=== PATIENT | female | born 1985 | race Two or more races ===

== ENCOUNTER 2017-11-15 06:49 | Inpatient (IN) | payer MEDICAID ==
[~2017-11-15] VITALS: Ht 172.7 cm; Wt 87.2 kg
[~2017-11-15 06:49] MED LIST: SERT-135 PO
[2017-11-15 08:13] LABS: Eosinophils # (auto) 0 uL; Hemoglobin 13.3 g/dL (12.2-16.2); Lymphocytes # (auto) 0.9 uL; Monocytes # (auto) 0.4 uL; Platelet Count (auto) 140 10^3/uL (140-450); Red Cell Distribution Width 18.4 % (11.8-14.3)
[2017-11-15 08:15] LABS: Basophils # (auto) 0 uL; Basophils % (auto) 0.6 % (0.0-2.0); Hematocrit 38.9 % (36.0-46.0); Lymphocytes % (auto) 11.2 % (10.0-50.0); Mean Corpuscular Hgb Conc. 34.3 g/dL (32.0-36.0); Monocytes % (auto) 4.5 % (0.0-12.0); Neutrophils # (auto) 6.8 uL; Neutrophils % (auto) 83.7 % (37.0-80.0); Nucleated Red Blood Cells % 0.2 %; Red Blood Cells 3.92 10^6/uL (4.0-5.20); White Blood Cell 8.1 10^3/uL (4.4-10.8)
[2017-11-15 08:32] LABS: INR 1.22 (0.9-1.15); Partial Thromboplastin Time 24.3 sec (22.64-33.71); Prothrombin Time 13.3 sec (9.37-12.3)
[2017-11-15 08:35] LABS: Albumin 3.8 g/dL (3.4-5.0); BUN/Creatinine Ratio 8.1
[2017-11-15 08:37] LABS: Bilirubin, Total 2.4 mg/dL (0.2-1.0); Total Protein 9.1 g/dL (6.4-8.2)
[2017-11-15 11:16] LABS: Urine Bacteria NONE SEEN /hpf (None Seen); Urine Blood TRACE /uL (Negative); Urine Hyaline Cast MOD /lpf (0 - 2); Urine Mucus MANY (None Seen); Urine Specific Gravity 1.039 (1.001-1.035); Urine WBC 5 /hpf (0 - 5)
[2017-11-15] MEDS ORDERED: SODIUM CHLORIDE 0.9% 1,000 ML IV ONE ×2 (11:47)
[2017-11-15] MEDS ORDERED: PANTOPRAZOLE 40 MG/10 ML VIAL IV ONE (12:00)
[2017-11-15] MEDS ORDERED: NALBUPHINE HCL 10 MG/1ml INJECTION IV ONE ×2 (12:00→13:45)
[2017-11-15] MEDS ORDERED: PIPERACILLIN-TAZOB 3.375GM 50 ML IV ONE (12:00)
[2017-11-15] MEDS ORDERED: ONDANSETRON HCL 4 MG/2 ML VIAL IV ONE (12:00)
[2017-11-15] MEDS ORDERED: KETOROLAC TROMETH 30 MG/ML 1ML VIAL IV ONE (13:45)
[2017-11-15] MEDS ORDERED: ONDANSETRON HCL 4 MG/2 ML VIAL IV PRN (14:15)
[2017-11-15] MEDS ORDERED: POTASSIUM CHL 20 Meq TABLET PO ONE (14:15)
[2017-11-15] MEDS: SODIUM CHLORIDE 0.9% 1,000 ML IV SCH ×2 (14:23→22:58)
[2017-11-15] MEDS: MORPHINE SULFATE 4 MG/ML SYR/VIAL IV PRN ×2 (18:03→23:17)
[2017-11-15 23:37] VITALS: BP 137/84
[2017-11-16] VITALS (7 sets, daily range): BP systolic 120–154; BP diastolic 68–91
[2017-11-16] MEDS: MORPHINE SULFATE 4 MG/ML SYR/VIAL IV PRN ×3 (05:14→21:52)
[2017-11-16 05:43] LABS: Basophils # (auto) 0 uL; Basophils % (auto) 0.4 % (0.0-2.0); Eosinophils # (auto) 0 uL; Eosinophils % (auto) 0.3 % (0.0-7.0); Hematocrit 32.9 % (36.0-46.0); Hemoglobin 11.2 g/dL (12.2-16.2); Lymphocytes # (auto) 1.3 uL; Lymphocytes % (auto) 20.6 % (10.0-50.0); Mean Corpuscular Hemoglobin 34.7 pg (28.0-32.0); Mean Corpuscular Hgb Conc. 34.2 g/dL (32.0-36.0); Mean Corpuscular Volume 101.4 fL (80.0-100.0); Monocytes # (auto) 0.4 uL; Monocytes % (auto) 6.4 % (0.0-12.0); Neutrophils # (auto) 4.5 uL; Neutrophils % (auto) 72.3 % (37.0-80.0); Platelet Count (auto) 108 10^3/uL (140-450); Red Blood Cells 3.25 10^6/uL (4.0-5.20); Red Cell Distribution Width 18.3 % (11.8-14.3); White Blood Cell 6.2 10^3/uL (4.4-10.8)
[2017-11-16 06:10] LABS: Albumin 3.1 g/dL (3.4-5.0); BUN/Creatinine Ratio 9.6; Bilirubin, Total 1.8 mg/dL (0.2-1.0); Calcium 7.2 mg/dL (8.5-10.1); Potassium 3.3 mmol/L (3.5-5.1); Total Protein 7.5 g/dL (6.4-8.2)
[2017-11-16] MEDS: SODIUM CHLORIDE 0.9% 1,000 ML IV SCH ×3 (06:15→22:22)
[2017-11-16] MEDS: PANTOPRAZOLE 40 MG/10 ML VIAL IV SCH (09:25)
[2017-11-16] MEDS: HYDROcodone-ACET 5/325MG TAB PO PRN ×2 (09:26→20:24)
[2017-11-16] MEDS ORDERED: POTASSIUM CHL 20 Meq TABLET PO ONE (15:30)
[2017-11-17] MEDS: HYDROcodone-ACET 5/325MG TAB PO PRN ×2 (02:45→15:07)
[2017-11-17 05:00] VITALS: BP 142/83
[2017-11-17 06:31] LABS: Basophils # (auto) 0 uL; Basophils % (auto) 0.6 % (0.0-2.0); Eosinophils # (auto) 0.1 uL; Hematocrit 30.4 % (36.0-46.0); Hemoglobin 10.5 g/dL (12.2-16.2); Monocytes # (auto) 0.3 uL; Neutrophils # (auto) 3.4 uL; Nucleated Red Blood Cells % 0.1 %; White Blood Cell 5.3 10^3/uL (4.4-10.8)
[2017-11-17 06:34] LABS: Eosinophils % (auto) 1.4 % (0.0-7.0); Lymphocytes # (auto) 1.6 uL; Lymphocytes % (auto) 29.3 % (10.0-50.0); Mean Corpuscular Hemoglobin 35.5 pg (28.0-32.0); Mean Corpuscular Hgb Conc. 34.7 g/dL (32.0-36.0); Mean Corpuscular Volume 102.4 fL (80.0-100.0); Monocytes % (auto) 5.6 % (0.0-12.0); Neutrophils % (auto) 63.1 % (37.0-80.0); Platelet Count (auto) 132 10^3/uL (140-450); Red Blood Cells 2.97 10^6/uL (4.0-5.20); Red Cell Distribution Width 18.2 % (11.8-14.3)
[2017-11-17] MEDS: SODIUM CHLORIDE 0.9% 1,000 ML IV SCH ×3 (06:50→23:30)
[2017-11-17 07:02] LABS: Albumin 2.8 g/dL (3.4-5.0); BUN/Creatinine Ratio 5.5; Bilirubin, Total 0.7 mg/dL (0.2-1.0); Calcium 6.9 mg/dL (8.5-10.1); Magnesium 1.4 mg/dL (1.6-2.6); Potassium 3.4 mmol/L (3.5-5.1); Total Protein 7.1 g/dL (6.4-8.2)
[2017-11-17 09:37] VITALS: BP 148/94
[2017-11-17] MEDS: PANTOPRAZOLE 40 MG/10 ML VIAL IV SCH (09:42)
[2017-11-17] MEDS: MORPHINE SULFATE 4 MG/ML SYR/VIAL IV PRN ×2 (09:56→19:45)
[2017-11-17] MEDS ORDERED: MAGNESIUM SULFATE 1GM/100ML 100 ML IV ONE (10:00)
[2017-11-17] MEDS ORDERED: POTASSIUM CHL 20MEQ/100ML 100 ML IV ONE (10:00)
[2017-11-17 11:45] VITALS: BP 125/78
[2017-11-17] MEDS ORDERED: POTASSIUM CHL 20 Meq TABLET PO ONE (12:45)
[2017-11-17 16:43] VITALS: BP 145/71
[2017-11-17 22:00] VITALS: BP 144/87
[2017-11-18] MEDS: HYDROcodone-ACET 5/325MG TAB PO PRN ×2 (00:07→08:47)
[2017-11-18 05:00] VITALS: BP 139/80
[2017-11-18 06:18] LABS: Hemoglobin 10.9 g/dL (12.2-16.2)
[2017-11-18 06:31] LABS: Hematocrit 31.5 % (36.0-46.0); Mean Corpuscular Hgb Conc. 34.6 g/dL (32.0-36.0); Mean Corpuscular Volume 101.2 fL (80.0-100.0); Platelet Count (auto) 157 10^3/uL (140-450); Red Blood Cells 3.11 10^6/uL (4.0-5.20); Red Cell Distribution Width 17.9 % (11.8-14.3); White Blood Cell 4.6 10^3/uL (4.4-10.8)
[2017-11-18 06:34] LABS: Albumin 2.9 g/dL (3.4-5.0); BUN/Creatinine Ratio 1.9; Bilirubin, Total 0.7 mg/dL (0.2-1.0); Calcium 7.3 mg/dL (8.5-10.1); Magnesium 1.6 mg/dL (1.6-2.6); Total Protein 7.5 g/dL (6.4-8.2)
[2017-11-18 06:37] LABS: Band Neutrophils % (manual) 0; Basophils % (manual) 0 (0.0-2.0); Blast Cells 0; Eosinophils % (manual) 0 (0-7); Promyelocytes % 0; Reactive Lymphocytes 0
[2017-11-18 06:56] LABS: Lymphocytes % (manual) 30 (10.0-50.0); Metamyelocytes % 1; Monocytes % (manual) 6 (0-12); Myelocytes % 2
[2017-11-18 07:27] LABS: Potassium 2.9 mmol/L (3.5-5.1)
[2017-11-18 09:00] VITALS: BP 140/87
[2017-11-18] MEDS: PANTOPRAZOLE 40 MG/10 ML VIAL IV SCH (09:31)
[2017-11-18] MEDS: SODIUM CHLORIDE 0.9% 1,000 ML IV SCH (09:34)
[2017-11-18] MEDS ORDERED: POTASSIUM CHL 20 Meq TABLET PO ONE ×2 (09:45→13:45)
[2017-11-18] MEDS ORDERED: MAGNESIUM SULFATE 1GM/100ML 100 ML IV ONE (09:45)
[2017-11-18 12:41] VITALS: BP 140/87
[2017-11-18 13:00] VITALS: BP 143/90
== END 2017-11-18 14:20 | disposition home or self-care (01) ==
LOC: ER 06:49 → OVERFLOW 06:50 → WEST WING 21:25
PROVIDERS: ADMIT Internal Medicine; ATTEND Internal Medicine
DX: K80.20 Calculus of gallbladder without cholecystitis without obstruction (principal); K85.90 Acute pancreatitis without necrosis or infection, unspecified; K76.0 Fatty (change of) liver, not elsewhere classified; K83.8 Other specified diseases of biliary tract; F32.9 Major depressive disorder, single episode, unspecified; E87.6 Hypokalemia; K59.00 Constipation, unspecified; F41.9 Anxiety disorder, unspecified; R74.8 Abnormal levels of other serum enzymes; R79.89 Other specified abnormal findings of blood chemistry; R94.5 Abnormal results of liver function studies; Z79.899 Other long term (current) drug therapy; Z83.3 Family history of diabetes mellitus; Z82.49 Family history of ischemic heart disease and other diseases of the circulatory system; Z71.3 Dietary counseling and surveillance
CPT/HCPCS: 36415; 71045; 74176; 74181; 76705; 80053; 81001; 81025; 82150; 83605; 83690; 83735; 84132; 85007; 85025; 85027; 85610; 85730; 86850; 86900; 86901; 87040; 96361; 96365; 96375; C9113; J1885; J2405; J2543

== ENCOUNTER 2020-07-26 23:24 | Inpatient (IN) | payer MEDICAID, OTHER ==
[~2020-07-26] VITALS: Ht 172.7 cm; Wt 91.4 kg
[~2020-07-26 23:24] MED LIST changes: -SERT-135 PO; +SERT100T PO
[2020-07-27 00:31] LABS: Basophils # (auto) 0 10 ^3/uL (0-0.2); Eosinophils # (auto) 0 10 ^3/uL (0-0.8); Eosinophils % (auto) 0.3 % (0.0-7.0); Hemoglobin 11.4 g/dL (12.2-16.2); Lymphocytes # (auto) 1.1 10 ^3/uL (0.4-5.4); Monocytes # (auto) 0.3 10 ^3/uL (0-1.3); White Blood Cell 3.4 10^3/uL (4.4-10.8)
[2020-07-27 00:33] LABS: Basophils % (auto) 0.6 % (0.0-2.0); Hematocrit 33.9 % (36.0-46.0); Lymphocytes % (auto) 32.9 % (10.0-50.0); Mean Corpuscular Hemoglobin 37.4 pg (28.0-32.0); Mean Corpuscular Hgb Conc. 33.6 g/dL (32.0-36.0); Mean Corpuscular Volume 111.1 fL (80.0-100.0); Monocytes % (auto) 8.3 % (0.0-12.0); Neutrophils % (auto) 57.9 % (37.0-80.0); Nucleated Red Blood Cells % 0.2 %; Platelet Count (auto) 220 10^3/uL (140-450); Red Blood Cells 3.05 10^6/uL (4.0-5.20)
[2020-07-27 00:40] LABS: Red Cell Distribution Width 20.5 % (11.8-14.3)
[2020-07-27 00:48] LABS: Albumin 3.4 g/dL (3.4-5.0); BUN/Creatinine Ratio 6.6
[2020-07-27 00:51] LABS: Bilirubin, Total 0.8 mg/dL (0.2-1.0); Total Protein 7.6 g/dL (6.4-8.2)
[2020-07-27 01:00] LABS: Potassium 2.5 mmol/L (3.5-5.1)
[2020-07-27] MEDS ORDERED: LORazepam 2MG/ML-1ML VIAL ONE (01:14)
[2020-07-27] MEDS ORDERED: LORazepam 2MG/ML-1ML VIAL IV ONE (01:15)
[2020-07-27] MEDS: POTASSIUM CHL 20MEQ/100ML 100 ML IV SCH ×2 (02:07→03:30)
[2020-07-27] MEDS ORDERED: levETIRAcetam 500 MG/5ML INJ IV ONE (02:24)
[2020-07-27 04:28] LABS: Urine Bacteria NONE SEEN /hpf (None Seen); Urine Blood Negative /uL (Negative); Urine Mucus FEW (None Seen); Urine Specific Gravity 1.013 (1.001-1.035); Urine WBC 2 /hpf (0 - 5)
[2020-07-27 04:35] LABS: Amphetamine Screen, Urine NEGATIVE (NEGATIVE); Barbiturate Scree,Urine NEGATIVE (NEGATIVE); Benzodiazephine Screen, Urine POSITIVE (NEGATIVE); Cannabinoid Screen, Urine NEGATIVE (NEGATIVE); Cocaine Screen, Urine NEGATIVE (NEGATIVE); Opiate Scree,Urine NEGATIVE (NEGATIVE); Phencyclidine Screen, Urine NEGATIVE (NEGATIVE)
[2020-07-27] MEDS ORDERED: ACETAMINOPHEN 325 MG TAB PO PRN (06:00)
[2020-07-27] MEDS ORDERED: NITROGLYCERIN 0.4 MG SL TAB SL PRN (06:00)
[2020-07-27] MEDS ORDERED: LORazepam 2MG/ML-1ML VIAL IV PRN (06:00)
[2020-07-27] MEDS ORDERED: MORPHINE SULFATE 4 MG/ML SYR/VIAL IV PRN (06:00)
[2020-07-27] MEDS ORDERED: MORPHINE SULF INJ 2 MG/ML SYRINGE 1ML IV PRN ×2 (06:00→09:00)
[2020-07-27] MEDS ORDERED: SODIUM CHLORIDE 0.9% 1,000 ML IV SCH (06:00)
[2020-07-27] MEDS ORDERED: ONDANSETRON HCL 4 MG/2 ML VIAL IV PRN (06:00)
[2020-07-27] MEDS ORDERED: DOCUSATE SOD 100 MG CAP PO PRN (06:00)
[2020-07-27] MEDS ORDERED: HYDROcodone-ACET 5/325MG TAB PO PRN (06:00)
[2020-07-27 07:35] LABS: Basophils # (auto) 0 10 ^3/uL (0-0.2); Eosinophils # (auto) 0 10 ^3/uL (0-0.8); Eosinophils % (auto) 0.1 % (0.0-7.0); Hemoglobin 10.3 g/dL (12.2-16.2); Monocytes # (auto) 0.4 10 ^3/uL (0-1.3)
[2020-07-27 07:40] LABS: Basophils % (auto) 0.2 % (0.0-2.0); Lymphocytes % (auto) 17.4 % (10.0-50.0); Mean Corpuscular Hemoglobin 38.4 pg (28.0-32.0); Mean Corpuscular Hgb Conc. 34.3 g/dL (32.0-36.0); Monocytes % (auto) 7.2 % (0.0-12.0); Neutrophils # (auto) 4.2 10 ^3/uL (1.6-8.6); Neutrophils % (auto) 75.1 % (37.0-80.0); Nucleated Red Blood Cells % 0.1 %; Platelet Count (auto) 196 10^3/uL (140-450); Red Blood Cells 2.68 10^6/uL (4.0-5.20); White Blood Cell 5.5 10^3/uL (4.4-10.8)
[2020-07-27 07:51] LABS: Red Cell Distribution Width 20.9 % (11.8-14.3)
[2020-07-27 07:58] LABS: Potassium 3.1 mmol/L (3.5-5.1)
[2020-07-27 08:02] LABS: Albumin 3.1 g/dL (3.4-5.0); BUN/Creatinine Ratio 7.2; Calcium 7.7 mg/dL (8.5-10.1)
[2020-07-27 08:04] LABS: Total Protein 6.9 g/dL (6.4-8.2)
--- NOTE | 2020-07-27 08:35 | NUR ---
Telemetry admit from ER NATHANIEL ALEXIME KHOA admitted to Telemetry unit after SBAR received. Patient oriented to Xochilt magaña RN, unit, room, bed, and unit policies regarding patient care and visiting hours. Patient now on continuous telemetry monitoring, tele box #40 and telemetry reading on arrival to unit is 75. Weighed by bedscale and encouraged to call if they need something. All questions and concerns addressed, patient verbalized understanding. Bed in low and locked position, call light within reach. Will continue to monitor qhr1 and prn.
[2020-07-27 09:02] VITALS: BP 119/86
[2020-07-27] MEDS ORDERED: ASCORBIC ACID 500 MG TAB PO SCH (10:00)
[2020-07-27] MEDS ORDERED: ZINC SULFATE 220mg CAP or TAB PO SCH (10:00)
[2020-07-27] MEDS ORDERED: MULTIPLE VITAMIN TAB PO SCH (10:00)
[2020-07-27] MEDS: ENOXAPARIN SOD 40 MG/0.4 ML SYRINGE SC SCH (10:42)
[2020-07-27] MEDS: FAMOTIDINE 20 MG TAB PO SCH ×2 (10:42→21:09)
--- NOTE | 2020-07-27 11:35 | NUR ---
WOUND CARE NOTE: Wound care in to see patient per wound care request regarding skin integrity issue that are noted on admission. Patient is 34 years old female admitted for Seizure Disorder. Patient is resting in bed in Rm. 219B. Patient is awake, alert and oriented. Patient denies any pain at this time. She's ambulatory with stand by assist and she's self turning and repositioning. Her Alpesh score is 21. No open wound noted other than dry , intact scabs to patient's BLE which she reported "from nervous scratching" and in addition she states, it will get better as it heals and dry, feeling more itchy. Wounds are scabbed, clean and dry with pink surrounding skin, left open to air. Patient's wound care education provided, encourage to apply HYdraguard cream to BLE skin to helps moisturize skin and reduce dryness and itching. Patient tolerated well and verbalized understanding. No other wound noted, no pressure injury noted. Bed in low position, call bush within reach, all safety precautions in placed. No further wound care monitoring needed at this time. RECOMMENDATION: Reconsult for active wound, pressure injury, low Alpesh score of 12 and below. Addendum: 07/27/20 at 1504 by Rosemary Olmos RN Amended: Links added.
--- NOTE | 2020-07-27 12:10 | NUR ---
IV infiltration noted. IV removed and pressure dressing applied. Addendum: 07/27/20 at 1550 by Xochilt Lo RN wrong entry
[2020-07-27 13:24] VITALS: BP 116/61
--- NOTE | 2020-07-27 14:28 | NUR ---
Dr. Magaña at bedside, discussed plan of care with patient. Will carry out new orders.
[2020-07-27] MEDS ORDERED: chlordiazePOXIDE HCL 5 MG CAP PO PRN (14:45)
[2020-07-27] MEDS ORDERED: chlordiazePOXIDE HCL 5 MG CAP PO ONE (16:00)
[2020-07-27] MEDS ORDERED: POTASSIUM CHL 20 Meq TABLET PO ONE (16:00)
[2020-07-27] MEDS: MAGNESIUM SULFATE 1GM/100ML 100 ML IV SCH ×2 (16:19→18:34)
[2020-07-27 16:33] VITALS: BP 116/72
--- NOTE | 2020-07-27 18:13 | NUR ---
PATIENT RESTING COMFORTABLY IN BED, NO SEIZURE ACTIVITIES NOTED. PATIENT A/O, NO S/S DISTRESS NOTED. SEIZURE PRECAUTION MAINTAINED WITH PADDED RAILS. WILL CONTINUE TO MONITOR FOR CHANGES
--- NOTE | 2020-07-27 19:35 | NUR ---
Opening Shift Note Assumed care of patient, awake and AOX4. No S/S of distress/SOB or pain. Fall, seizure, and safety precautions in place. Call light within reach and able to use. Instructed on POC and to call for assist PRN, patient verbalized understanding and in agreement. Will continue to monitor for changes Q1hr and PRN.
[2020-07-27] MEDS: levETIRAcetam 500 MG TAB PO SCH (21:09)
[2020-07-27 22:00] VITALS: BP 124/81
[2020-07-28 05:00] VITALS: BP 114/79
[2020-07-28 06:12] LABS: Basophils # (auto) 0 10 ^3/uL (0-0.2); Basophils % (auto) 0.3 % (0.0-2.0); Eosinophils # (auto) 0 10 ^3/uL (0-0.8); Eosinophils % (auto) 0.7 % (0.0-7.0); Monocytes # (auto) 0.4 10 ^3/uL (0-1.3); Neutrophils # (auto) 3.6 10 ^3/uL (1.6-8.6)
[2020-07-28 06:16] LABS: Hematocrit 31.2 % (36.0-46.0); Hemoglobin 10.4 g/dL (12.2-16.2); Lymphocytes % (auto) 33.3 % (10.0-50.0); Mean Corpuscular Hemoglobin 38.2 pg (28.0-32.0); Mean Corpuscular Hgb Conc. 33.5 g/dL (32.0-36.0); Mean Corpuscular Volume 114.1 fL (80.0-100.0); Monocytes % (auto) 6.4 % (0.0-12.0); Neutrophils % (auto) 59.3 % (37.0-80.0); Nucleated Red Blood Cells % 0.1 %; Platelet Count (auto) 189 10^3/uL (140-450); Red Blood Cells 2.73 10^6/uL (4.0-5.20); White Blood Cell 6.1 10^3/uL (4.4-10.8)
[2020-07-28 06:19] LABS: Red Cell Distribution Width 20.5 % (11.8-14.3)
[2020-07-28 06:26] LABS: Albumin 2.8 g/dL (3.4-5.0); Calcium 7.8 mg/dL (8.5-10.1)
[2020-07-28 06:29] LABS: BUN/Creatinine Ratio 10.4
[2020-07-28 06:31] LABS: Bilirubin, Total 0.7 mg/dL (0.2-1.0); Total Protein 6.7 g/dL (6.4-8.2)
[2020-07-28 06:32] LABS: % Iron Saturation 14.2 % (15-50)
--- NOTE | 2020-07-28 06:51 | NUR ---
HOSP PAGED - K+ CRITICAL RECEIVED A CALL FROM LAB AT THIS TIME FOR K+ 2.8. ON-CALL HOSP PAGED. AWAITING CALL BACK. WILL CONTINUE TO MONITOR.
[2020-07-28 06:52] LABS: Potassium 2.8 mmol/L (3.5-5.1)
[2020-07-28] MEDS ORDERED: POTASSIUM CHL 20 Meq TABLET PO ONE (07:00)
[2020-07-28] MEDS ORDERED: POTASSIUM CHL 20MEQ/100ML 100 ML IV ONE (07:00)
--- NOTE | 2020-07-28 07:12 | NUR ---
CARE ENDORSED MEDICATIONS ORDERED AT 0700 NOT YET AVAILABLE. DAY SHIFT RN STATES HE WILL CARRY OUT ORDER. CARE ENDORSED AT THIS TIME.
--- NOTE | 2020-07-28 07:30 | NUR ---
Opening Shift Note RECEIVED REPORT FROM NOC RN. Assumed care of patient, awake and alert. No S/S of distress/SOB or pain. BED IN LOWEST, LOCKED POSITION WITH SIDERAILS UP x2 AND CALL LIGHT WITHIN REACH. Instructed on POC and to call for assist PRN, will continue to monitor for changes Q1hr and PRN.
[2020-07-28 09:00] VITALS: BP 124/78
[2020-07-28] MEDS: THIAMINE HCL 100 MG TAB PO SCH (10:12)
[2020-07-28] MEDS: FOLIC ACID 1 MG TAB PO SCH (10:12)
[2020-07-28] MEDS: levETIRAcetam 500 MG TAB PO SCH ×2 (10:12→22:10)
[2020-07-28] MEDS: POTASSIUM CHL 20 Meq TABLET PO SCH (10:13)
[2020-07-28] MEDS: ENOXAPARIN SOD 40 MG/0.4 ML SYRINGE SC SCH (10:13)
[2020-07-28] MEDS: FAMOTIDINE 20 MG TAB PO SCH ×2 (10:13→22:10)
[2020-07-28 13:00] VITALS: BP 133/84
[2020-07-28] MEDS ORDERED: LORazepam 2MG/ML-1ML VIAL IV ONE (13:15)
[2020-07-28 14:31] LABS: Potassium 3.7 mmol/L (3.5-5.1)
[2020-07-28 14:33] LABS: Magnesium 1.8 mg/dL (1.6-2.6)
[2020-07-28] MEDS ORDERED: MAGNESIUM SULFATE 1GM/100ML 100 ML IV ONE (16:15)
--- NOTE | 2020-07-28 16:54 | NUR ---
IV insertion IV access obtained, via clean sterile technique by inserting 22 gauge catheter at RIGHT HAND after 1 attempt(s). IV secured properly. No trauma to site. Patient tolerated well. IV INITIATED BY JERAMY JUNIOR.
--- NOTE | 2020-07-28 16:55 | NUR ---
IV removal IV TO LEFT AC DC'd with clean sterile technique, catheter fully intact. Pressure dressing applied to site. Patient tolerated well.
[2020-07-28 17:00] VITALS: BP 122/80
[2020-07-28] MEDS: FERROUS SULFATE 325 MG TAB PO SCH (17:37)
--- NOTE | 2020-07-28 19:00 | NUR ---
Opening Shift Note Assumed care of patient, awake and alert. No S/S of distress/SOB or pain. Instructed on POC and to call for assist PRN, will continue to monitor for changes Q1hr and PRN.
[2020-07-28 22:00] VITALS: BP 131/85
[2020-07-29 05:00] VITALS: BP 117/72
[2020-07-29 07:00] VITALS: BP 130/79
[2020-07-29 08:46] VITALS: BP 130/79
[2020-07-29] MEDS: FAMOTIDINE 20 MG TAB PO SCH (09:04)
[2020-07-29] MEDS: THIAMINE HCL 100 MG TAB PO SCH (09:04)
[2020-07-29] MEDS: POTASSIUM CHL 20 Meq TABLET PO SCH (09:05)
[2020-07-29] MEDS: levETIRAcetam 500 MG TAB PO SCH (09:05)
[2020-07-29] MEDS: FERROUS SULFATE 325 MG TAB PO SCH (09:05)
[2020-07-29] MEDS: FOLIC ACID 1 MG TAB PO SCH (09:05)
[2020-07-29] MEDS: ENOXAPARIN SOD 40 MG/0.4 ML SYRINGE SC SCH (09:05)
[2020-07-29 10:12] LABS: Folate (Folic Acid) 2.86 ng/mL (5.38-24)
--- NOTE | 2020-07-29 10:13 | NUR ---
Opening Shift Note Assumed care of patient, awake, A&OX4. No S/S of distress/SOB or pain. Insructed on POC and to call for assist PRN, bed in lowest position and locked, call light within reach. Will continue to monitor for changes Q1hr and PRN. Addendum: 07/29/20 at 1022 by KETTY WALTER RN RN This event happened at 0800 not 1022.
[2020-07-29] MEDS ORDERED: POTA-220 PO (10:57)
[2020-07-29] MEDS ORDERED: KEP500T PO (10:57)
[2020-07-29] MEDS ORDERED: FER325T PO (10:57)
[2020-07-29] MEDS ORDERED: THIA100T10 PO (10:57)
[2020-07-29] MEDS ORDERED: FOLI1TAB6 PO (10:57)
[2020-07-29] MEDS ORDERED: CYAN100056 PO (10:57)
[2020-07-29] MEDS ORDERED: CYANOCOBALAMIN (B-12) 1000 MCG/1 ML VIAL SUBCUT ONE (11:00)
[2020-07-29 12:17] VITALS: BP 133/77
[2020-07-29 13:58] VITALS: BP 133/77
--- NOTE | 2020-07-29 15:16 | NUR ---
DISCHARGE NOTE PATIENT ALERT AND ORIENTED X4 ALL DISCHARGE INSTRUCTIONS GIVEN ALL QUESTIONS AND CONCERNS ADDRESSED/ANSWERED PATIENT VERBALIZED UNDERSTANDING. PATIENT INFORMED OF APPOINTMENT MADE FOR TOMORROW AND NEW MEDICATIONS SENT TO PHARMACY. PATIENT VERBALIZED UNDERSTANDING. IV REMOVED CATHETER INTACT PRESSURE DRESSINGS APPLIED PATIENT TOLERATED WELL. TELE BOX REMOVED CLEANED AND SENT TO ICU AUTOMOTIVE PAINTER HELPER NOTIFIED PATIENT DENIES ALL PAIN SOB AND DISTRESS. PATIENT TAKEN TO PERSONAL VEHICLE USING WHEELCHAIR
== END 2020-07-29 15:13 | disposition home or self-care (01) | DRG 53 ==
LOC: EDBD 23:24 → ER 23:26 → TELE 23:27 → TELE-CENTR 07-27 08:51
PROVIDERS: ADMIT Nurse Practitioner Family; ATTEND Internal Medicine
DX: G40.409 Other generalized epilepsy and epileptic syndromes, not intractable, without status epilepticus (principal); E87.6 Hypokalemia; F41.9 Anxiety disorder, unspecified; D72.819 Decreased white blood cell count, unspecified; D53.9 Nutritional anemia, unspecified; D51.9 Vitamin B12 deficiency anemia, unspecified; D52.9 Folate deficiency anemia, unspecified; F17.200 Nicotine dependence, unspecified, uncomplicated; F32.9 Major depressive disorder, single episode, unspecified; Z82.49 Family history of ischemic heart disease and other diseases of the circulatory system; Z83.3 Family history of diabetes mellitus; Z83.511 Family history of glaucoma; Z72.89 Other problems related to lifestyle; E44.1 Mild protein-calorie malnutrition
CPT/HCPCS: 36415; 70450; 80053; 80307; 81001; 82607; 82746; 83036; 83540; 83550; 83735; 84132; 85025; 95819; 96365; 96375; G0378; J3480; J7060

== ENCOUNTER 2022-01-19 20:36 | Emergency (ER) | payer MEDICAID ==
[~2022-01-19] VITALS: Ht 172.7 cm; Wt 72.6 kg
[~2022-01-19 20:36] MED LIST changes: +CYAN100056 PO; +FER325T PO; +FOLI1TAB6 PO; +KEP500T PO; +POTA-220 PO; +THIA100T10 PO
[2022-01-19 20:37] VITALS: BP 150/93
== END 2022-01-19 20:58 | disposition left against medical advice (07) ==
LOC: ER 20:36
DX: R10.9 Unspecified abdominal pain (principal); R11.2 Nausea with vomiting, unspecified; R19.7 Diarrhea, unspecified; Z53.21 Procedure and treatment not carried out due to patient leaving prior to being seen by health care provider

== ENCOUNTER 2022-01-19 22:20 | Emergency (ER) | payer MEDICAID, OTHER ==
[~2022-01-19] VITALS: Ht 172.7 cm; Wt 72.6 kg
[2022-01-19] MEDS ORDERED: SODIUM CHLORIDE 0.9% 1,000 ML IVB ONE (23:00)
[2022-01-19] MEDS ORDERED: MORPHINE SULFATE 4 MG/ML SYR/VIAL IV ONE (23:00)
[2022-01-19] MEDS ORDERED: ONDANSETRON HCL 4 MG/2 ML VIAL IV ONE (23:00)
[2022-01-19 23:11] LABS: Basophils # (auto) 0 10 ^3/uL (0-0.2); Eosinophils # (auto) 0 10 ^3/uL (0-0.8); Hematocrit 40.9 % (36.0-46.0); Lymphocytes # (auto) 0.6 10 ^3/uL (0.4-5.4); Lymphocytes % (auto) 5.7 % (10.0-50.0); Mean Corpuscular Hemoglobin 36.2 pg (28.0-32.0); Monocytes # (auto) 0.4 10 ^3/uL (0-1.3); Red Cell Distribution Width 15.4 % (11.8-14.3)
[2022-01-19 23:13] LABS: Basophils % (auto) 0.4 % (0.0-2.0); Hemoglobin 14.3 g/dL (12.2-16.2); Mean Corpuscular Hgb Conc. 34.9 g/dL (32.0-36.0); Mean Corpuscular Volume 103.8 fL (80.0-100.0); Monocytes % (auto) 4.1 % (0.0-12.0); Neutrophils # (auto) 9.2 10 ^3/uL (1.6-8.6); Neutrophils % (auto) 89.8 % (37.0-80.0); Red Blood Cells 3.95 10^6/uL (4.0-5.20); White Blood Cell 10.3 10^3/uL (4.4-10.8)
[2022-01-19 23:27] LABS: Albumin 4.2 g/dL (3.4-5.0); Calcium 8.8 mg/dL (8.5-10.1)
[2022-01-19 23:36] LABS: Bilirubin, Total 1.3 mg/dL (0.2-1.0); Total Protein 8.5 g/dL (6.4-8.2)
[2022-01-20] MEDS ORDERED: THIAMINE 100mg/ml INJ (200mg/2ml VIAL) IV ONE
[2022-01-20] MEDS ORDERED: LORazepam 2MG/ML-1ML VIAL IV ONE (00:15)
[2022-01-20] MEDS ORDERED: SODIUM CHLORIDE 0.9% 1,000 ML IV ONE (00:15)
[2022-01-20 01:58] VITALS: BP 127/74
== END 2022-01-20 02:01 | disposition home or self-care (01) ==
LOC: EDBD 22:20 → ER 22:20
DX: R10.84 Generalized abdominal pain (principal); R11.2 Nausea with vomiting, unspecified; Z79.899 Other long term (current) drug therapy
CPT/HCPCS: 36415; 74176; 80053; 80320; 83036; 83690; 85025; 96361; 96374; 96375; 99285; J2060; J2270; J2405; J3411; J7030

== ENCOUNTER 2022-12-02 14:39 | Emergency (ER) | payer MEDICAID, OTHER ==
[~2022-12-02] VITALS: Ht 30.5 cm; Wt 0.0 kg
[2022-12-02 14:49] VITALS: BP 129/78
[2022-12-02 15:49] LABS: Basophils # (auto) 0 10 ^3/uL (0-0.2); Basophils % (auto) 0.3 % (0.0-2.0); Eosinophils # (auto) 0 10 ^3/uL (0-0.8); Eosinophils % (auto) 0.1 % (0.0-7.0); Hemoglobin 15.5 g/dL (12.2-16.2); Lymphocytes # (auto) 0.7 10 ^3/uL (0.4-5.4); Lymphocytes % (auto) 13.4 % (10.0-50.0); Mean Corpuscular Hemoglobin 33.2 pg (28.0-32.0); Mean Corpuscular Hgb Conc. 34.5 g/dL (32.0-36.0); Mean Corpuscular Volume 96.4 fL (80.0-100.0); Monocytes # (auto) 0.1 10 ^3/uL (0-1.3); Monocytes % (auto) 2.3 % (0.0-12.0); Neutrophils # (auto) 4.6 10 ^3/uL (1.6-8.6); Neutrophils % (auto) 83.9 % (37.0-80.0); Red Blood Cells 4.67 10^6/uL (4.0-5.20); Red Cell Distribution Width 13.5 % (11.8-14.3); White Blood Cell 5.4 10^3/uL (4.4-10.8)
[2022-12-02 16:06] LABS: Albumin 4.1 g/dL (3.4-5.0); Calcium 8.4 mg/dL (8.5-10.1); Magnesium 1.8 mg/dL (1.6-2.6); Potassium 3.3 mmol/L (3.5-5.1)
[2022-12-02 16:14] LABS: Bilirubin, Total 1.8 mg/dL (0.2-1.0); Total Protein 8.1 g/dL (6.4-8.2)
[2022-12-02] MEDS ORDERED: ALPRAZolam 0.5 MG TAB PO ONE (16:30)
[2022-12-02 17:05] LABS: Urine Bacteria FEW /hpf (None Seen); Urine Blood 1+ /uL (Negative); Urine Mucus FEW (None Seen); Urine Specific Gravity 1.036 (1.001-1.035); Urine WBC 1 /hpf (0 - 5)
== END 2022-12-02 17:58 | disposition home or self-care (01) ==
LOC: ER 14:39
DX: F41.0 Panic disorder [episodic paroxysmal anxiety] (principal); R56.9 Unspecified convulsions; Z88.6 Allergy status to analgesic agent; Z79.899 Other long term (current) drug therapy
CPT/HCPCS: 36415; 70450; 71046; 80053; 81001; 83735; 84484; 85025; 93005